=== PATIENT | male | born 1970 | race African-American/Black ===

== ENCOUNTER 2018-02-06 23:29 | Emergency (ER) | payer SELFPAY ==
[2018-02-07] MEDS ORDERED: Sulfamethoxazole/Trimethoprim 800-160 MG Tab PO ONE (01:04)
--- NOTE | 2018-02-07 01:28 | EDM.PDOC ---
ED HPI GENERAL MEDICAL PROBLEM - General Chief Complaint: Genitourinary Problem Stated Complaint: CATH Time Seen by Provider: 02/06/18 23:53 Source of Information: Reports: Patient. Denies: EMS - History of Present Illness INITIAL COMMENTS - FREE TEXT/NARRATIVE: See dictated documentation Bladder Pain Score (Numeric/FACES): 9 - Related Data Allergies Allergy/AdvReac Type Severity Reaction Status Date / Time No Known Allergies Allergy Verified 02/07/18 00:03 Past Medical History - Past Health History Medical/Surgical History: Denies Medical/Surgical History Psychiatric History: Reports: Depression - Past Surgical History Other Neurological Surgeries/Procedures: Back surgery Other Musculoskeletal Surgeries/Procedures:: Pinky surgery Social & Family History - Family History Family Medical History: Noncontributory - Tobacco Use Smoking Status *Q: Never Smoker - Recreational Drug Use Recreational Drug Use: No ED ROS GENERAL - Review of Systems Review Of Systems: See Below Constitutional: Reports: No Symptoms HEENT: Reports: No Symptoms Respiratory: Reports: No Symptoms Cardiovascular: Reports: No Symptoms Endocrine: Reports: No Symptoms GI/Abdominal: Reports: No Symptoms : Reports: No Symptoms Musculoskeletal: Reports: No Symptoms Skin: Reports: No Symptoms Neurological: Reports: No Symptoms Psychiatric: Reports: No Symptoms Hematologic/Lymphatic: Reports: No Symptoms Immunologic: Reports: No Symptoms ED EXAM, RENAL/ - Physical Exam Exam: See Below Course - Vital Signs Last Recorded V/S: Last Vital Signs Temp 36.8 C 02/06/18 23:35 Pulse 135 H 02/06/18 23:35 Resp 20 02/06/18 23:35 BP 122/91 H 02/06/18 23:35 Pulse Ox 99 02/06/18 23:35 - Orders/Labs/Meds Orders: Active Orders 24 hr Category Date Time Status Insert Butts Catheter [Insert Urinary Catheter] [OM.PC] Care 02/07/18 00:23 Ordered Stat Urinary Catheter Assessment [RC] ASDIRECTED Care 02/07/18 00:23 Active CULTURE URINE [RM] Stat Lab 02/07/18 00:10 Received Labs: Laboratory Tests 02/07/18 Range/Units 00:10 Urine Color Yellow (Yellow) Urine Appearance Cloudy H (Clear) Urine pH 6.0 (5.0-8.0) Ur Specific [place] > or = 1.030 (1.005-1.030) Urine Protein Trace H (Negative) Urine Glucose (UA) Negative (Negative) Urine Ketones Negative (Negative) Urine Occult Blood 2+ H (Negative) Urine Nitrite Positive H (Negative) Urine Bilirubin Negative (Negative) Urine Urobilinogen 0.2 (0.2-1.0) Ur Leukocyte Esterase 1+ H (Negative) Urine RBC 0-5 (0-5) /hpf Urine WBC 20-30 H (0-5) /hpf Urine WBC Clumps Few (NOT SEEN) /hpf Ur Epithelial Cells Not seen (0-5) /hpf Urine Bacteria Many H (FEW) /hpf Urine Mucus Moderate H (FEW) /hpf Meds: Medications Discontinued Medications Generic Name Dose Route Start Last Admin Trade Name Freq PRN Reason Stop Dose Admin Trimethoprim/Sulfamethoxazole 1 tab 02/07/18 01:04 02/07/18 01:19 Septra Ds PO 02/07/18 01:05 1 tab ONETIME ONE Administration Departure - Departure Time of Disposition: 01:25 Disposition: Home, Self-Care 01 Condition: Good Clinical Impression: UTI, Urinary tract infectious disease, Urinary retention - Discharge Information *PRESCRIPTION DRUG MONITORING PROGRAM REVIEWED*: Not Applicable *COPY OF PRESCRIPTION DRUG MONITORING REPORT IN PATIENT IAN: Not Applicable Instructions: Clean Intermittent Catheterization, Male, Indwelling Urinary Catheter Insertion, Care After, Indwelling Urinary Catheter Care, Adult, Antibiotic Medicine, Adult, [id number] Referrals: PCP,Not In Area [Primary Care Provider] - Additional Instructions: Call your provider in [facility] for further direction regarding management of indwelling urinary catheter and urinary tract infection. Drink plenty of fluids. Continue your other medications, as prescribed. - My Orders Last 24 Hours: My Active Orders 02/07/18 00:10 CULTURE URINE [RM] Stat 02/07/18 00:23 Insert Butts Catheter [Insert Urinary Catheter] [OM.PC] Stat Urinary Catheter Assessment [RC] ASDIRECTED - Assessment/Plan Last 24 Hours: My Active Orders 02/07/18 00:10 CULTURE URINE [RM] Stat 02/07/18 00:23 Insert Butts Catheter [Insert Urinary Catheter] [OM.PC] Stat Urinary Catheter Assessment [RC] ASDIRECTED
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
== END 2018-02-07 01:45 | disposition home or self-care (01) ==
LOC: JD.ED 23:29
DX: R33.9 Retention of urine, unspecified (principal); N39.0 Urinary tract infection, site not specified
CPT/HCPCS: 51702; 81001; 87086; 87088; 87186; 99283; A9270